=== PATIENT | male | born 1955 | race Caucasian/White ===

== ENCOUNTER 2019-05-19 15:56 | Inpatient (IN) | payer OTHER ==
[~2019-05-19] VITALS: Ht 180.3 cm; Wt 83.9 kg
--- NOTE | ~2019-05-19 | D ---
[facility] [place] [address] DISCHARGE SUMMARY Name: MARCELLA THOMPSON Room #: 214-P ADM IN M.R.#: [id number] Admission: 05/19/19 Attend Phys: Dre Infante MD, Discharge: Date of : 53 Report #: [id number] THIS REPORT FOR: cc: TAMMIE - No family physician/PCP TAMMIE - No family physician/PCP ~ THIS REPORT FOR: //name// CC: TAMMIE physician/PCP Dre DODGE DO [facility] COURSE: The patient admitted here to [facility] with what seemed to be describing accelerating anginal pattern. Dr. Dodge had called and we electively admitted him. Ruled him out for myocardial infarction, taken to the catheterization lab, which had mild 3-vessel disease. 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 There was a significant hiatal hernia, some mild gastritis. No definite ulcer, diverticulosis was found and two polyps. He has been treated with a PPI and will be discharged on a PPI. He does have hypercholesterolemia, which was not treated and he should be discharged on 20 mg of atorvastatin. He will resume his nifedipine ER 30 and his losartan 100, the PPI, Protonix 40 and the atorvastatin 20. He also sees his primary care in [place], I believe a nurse practitioner in [place]. I will obtain that name and with Dr. Dodge for Cardiology followup to repeat lipids in 6-8 weeks. DISCHARGE DIAGNOSES: 1. Chest pain with catheterization revealed mild 3-vessel coronary artery disease. 2. Chest pain as noted above, probable secondary to gastrointestinal reflux esophagitis. 3. Hypertension. 4. Hypercholesterolemia. 5. Degenerative joint disease. 6. Internal hemorrhoids and 2 small colon polyps noted. Thank you for allowing me to participate in the care of this patient. By: 0948 1020 /nt
--- NOTE | ~2019-05-19 | H ---
[facility] [place] [address] HISTORY AND PHYSICAL Name: MARCELLA THOMPSON Room #: 214-P [facility] IN M.R.#: [id number] Admission: 05/19/19 Attend Phys: Dre Infante MD, Discharge: Date of : 53 Report #: [id number] THIS REPORT FOR: cc: FAM - No family physician/PCP FAM - No family physician/PCP ~ CC: [facility] physician/PCP Dre DODGE DO DATE OF SERVICE: 05/19/2019 CARDIOLOGY ADMISSION HISTORY OF PRESENT ILLNESS: The patient is a 64-year-old male. Patient followed by Dr. Jessica marrufo in [place], [place]. He came in with recurrent and classical anginal type symptoms. Perhaps started having some chest pressure earlier in the month, but in the last few nights he has been awoken by this chest pressure, which is variable in its duration from 30 minutes to an hour or so. 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 He sees a nurse practitioner I believe in [place], [place]. His only medications are montelukast, losartan 100 and nifedipine ER 30 mg. No syncope or presyncope. No prior cardiac history, but has multiple risk factors. PAST MEDICAL HISTORY: Positive for hypertension, hypercholesterolemia, although not treated. Some asthma related issues and arthritis, intermittent joint pain. Reflux. ALLERGIES: No known drug allergies. FAMILY HISTORY: Father had stents placed in his early 70s. SOCIAL HISTORY: He is , 2 children, accompanied by his and 1 son. He is active vo, very minimal alcohol, no tobacco use. REVIEW OF SYSTEMS: Negative except for some occasional nocturia. He does live in [facility]. PHYSICAL EXAMINATION: GENERAL: Pleasant, alert. VITAL SIGNS: Blood pressure is 150/80, pulse is 70s and regular. HEENT: Eyes reveal xanthelasmas. Pharynx is clear. NECK: Shows preserved upstrokes without JVD or bruits. LUNGS: Clear, slight prolonged expiratory phase. CARDIOVASCULAR: Regular rate and rhythm, S1, S2 distant. [facility] [address] [place] [address] HISTORY AND PHYSICAL Name: MARCELLA THOMPSON Room #: 214-[facility] IN .R.#: [id number] Admission: 05/19/19 Attend Phys: Dre Infante MD, Discharge: Date of : 53 Report #: [id number] ABDOMEN: Soft. No HSM or abdominal bruit. EXTREMITIES: Reveal no edema. Distal pulses intact. NEUROLOGIC: Nonfocal. SKIN: Warm and dry without xanthoma or ulcer. MUSCULOSKELETAL: Generalized arthritic changes. He did not ambulate. ASSESSMENT: 1. Accelerating anginal pattern/coronary artery disease. 2. Hypertension. 3. Hypercholesterolemia. 4. Degenerative joint disease. RECOMMENDATIONS AND PLAN: His laboratory work is relatively unremarkable except for an LDL 150 and a total cholesterol of 222. We will initiate aspirin and Lipitor 40 in addition to his losartan and nifedipine. We will proceed to the catheterization lab in the a.m. to delineate his anatomy. Risks, benefits, alternatives were discussed with the patient and his . Thank you for asking me to assist in the care of this patient. By: 21 1938 /nt
[2019-05-19 16:00] VITALS: BP 153/88
[2019-05-19 16:52] LABS: HEMATOCRIT 45.3 % (42.0-52.0); HEMOGLOBIN 15.6 gm/dL (14.0-18.0); MCH 30.2 pg (26.0-34.0); MCHC 34.5 g/dL (28.0-37.0); MCV 87.5 fL (80.0-100.0); RBC 5.17 mil/uL (4.50-6.00); RDW 13.5 % (10.5-14.5); WBC 8.6 thou/uL (4.0-11.0)
[2019-05-19] MEDS ORDERED: NIFEDIPINE ER30 M1 PO (16:59)
[2019-05-19] MEDS ORDERED: COZAAR 25 MG TA25 M1 PO (17:00)
[2019-05-19] MEDS ORDERED: MONTELUKAST SODI4 M1 PO (17:01)
[2019-05-19 17:03] LABS: ALBUMIN 3.6 g/dL (3.4-5.0); CALCIUM 8.5 mg/dL (8.5-10.1); POTASSIUM 3.6 mmol/L (3.5-5.1); TOTAL PROTEIN 7.2 g/dL (6.4-8.2)
[2019-05-19 17:05] LABS: CHOLESTEROL 222 mg/dL (<200); HDL CHOLESTEROL 43 mg/dL (>40); LDL CHOLESTEROL 149 mg/dL (<100); TC:HDL 5.2 Ratio (Not establshd); TRIGLYCERIDE 151 mg/dL (<150); VLDL 30 mg/dL (<40)
--- NOTE | 2019-05-19 18:18 | NUR ---
PT ARRIVED TO UNIT AT APPROX 1620 DIRECT ADMIT FROM SARIKA ACCOMPANIED BY SPOUSE AND SON. PT ALERT AND ORIENTED. VSS. DENIES PAIN, CP, AND SOB. O2 SATS WNL ON ROOM AIR. PHYSICIAN NOTIFIED OF PT'S ARRIVAL, ORDERS RECEIVED/ACKNOWLEDGED/IMPLEMENTED. ADMISSION COMPLETE. TELE STRIP PRINTED/DOCUMENTED. IV STARTED. PT CURRENTLY RESTING IN BED IN NO APPARENT DISTRESS. FAMILY AT BEDSIDE. CONTINUING TO MONITOR.
[2019-05-19 20:00] VITALS: BP 128/74
[2019-05-20] VITALS (10 sets, daily range): BP systolic 118–138; BP diastolic 76–88
--- NOTE | 2019-05-20 05:09 | NUR ---
PT RESTING QUIETLY IN ROOM WITH SPOUSE AT BEDSIDE OFFERING SUPPORT, NPO AFTER MNOC, NO C/O PAIN, VSS, WILL CON'T TO MONITOR PER PPOC.
--- NOTE | 2019-05-20 08:01 | NUR ---
ASSUMED CARE OF PT AT SHIFT CHANGE; LEFT DURING REPORT FOR CARDIAC CATH PROCEDURE AT 0750. WILL INTRO SELF UPON RETURN AND ASSESS FURTHER. SEE SEPARATE INTERVENTIONS FOR ASSESSMENTS, CARDIAC MONITORED.
--- NOTE | 2019-05-20 09:26 | EKG ---
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
--- NOTE | 2019-05-20 11:09 | NUR ---
RD consult received for pt with nutrition screening risk identified for wt loss 2-13 lb, and decreased po intake. Admitted with chest pain, and off unit for cardiac cath. BMI 25 adequate. Elevated chol 222, LDL 149, and triglycerides 151. Available for nutrition education if needed, otherwise low nutrition risk.
--- NOTE | 2019-05-20 16:37 | CATHLAB ---
[facility] [place] [address] INVASIVE PROCEDURE REPORT Name: MARCELLA THOMPSON Room #: 214-P ADM IN M.R.#: [id number] Admission: 05/19/19 Attend Phys: Dre Infante MD, Discharge: Date of : 53 Report #: [id number] THIS REPORT FOR: cc: FAM - No family physician/PCP FAM - No family physician/PCP Dre Infante MD [facility] ~ APPROVED REPORT Study performed: 05/20/2019 09:01:23 Patient Details The patient is a 64 year-old male Event Personnel Dre Infante Waiter/Waitress Third Class, April Vanessa RN RN, Veronika Momin RTR, ABDIRIZAK Gallardo, Laly Herndon Monitor Procedures Performed Art Access - R femoral artery* Left Heart Cath w/or w/o Coronaries 2899790 [facility] Aortogram Abdominal Peripheral Angio 116124 Renal Bilateral Peripheral Angiography 8478549 CVRENALBIL Hemostasis w/ Mynx Indication Chest pain Procedure Narrative The Right Groin^ was infiltrated with 1% Lidocaine subcutaneous anesthesia. A PINNACLE 6FR Sheath #[id number] sheath was inserted into the RFA 6F^. Coronary angiography was performed using coronary diagnostic catheters. The right coronary system was accessed and visualized with a JR4 catheter. The left coronary system was accessed and visualized with a JL4 catheter. The left ventricle was accessed and visualized with a STR. PIG catheter. Left ventriculogram was performed in 30 degree projection. There was no hematoma. Intraoperative Conscious Sedation Sedation start time: 804 Case end Time: 829 Fentanyl 50 mcg Versed 1 mg Fluoro Time: 2.57 minutes Dose: DAP 3413.00 cGycm2 367 mGy [facility] [address] [place] [address] INVASIVE PROCEDURE REPORT Name: MARCELLA THOMPSON Room #: 214-P [facility] IN .R.#: [id number] Admission: 05/19/19 Attend Phys: Dre Infante, Discharge: Date of : 53 Report #: [id number] Contrast Type and Amount: Omnipaque 90 ml Hemodynamics The aortic pressure is 151/81 mmHg with a mean of 78 mmHg. The left ventricular pressure is 146/6 mmHg with a mean of mmHg. The left ventricular end diastolic pressure is 26 mmHg. Conclusion 1. Normal left ventricular size and systolic function EF 60% #2 abdominal aortogram intact with mild irregularities no aneurysm. #3 selective bilateral renal arteries revealed wide patency with a small amount of fibromuscular disease involving the right mid renal artery not flow-limiting #4 left main free of disease giving rise to LAD and circumflex #5 LAD extends around the apex with minimal irregularity #6 a predominantly dominant left circumflex artery revealed no occlusive disease #7 a smaller nondominant right coronary artery with a PDA filling some left ventricle minimal distal irregularity small in caliber Recommendations and plan continue aggressive risk factor modification. No indication for coronary intervention. <ELECTRONICALLY SIGNED> By: Dre Infante MD, FACC 05/20/19 163 35 35 Dre Infante MD, FACC /INF
--- NOTE | 2019-05-20 16:59 | NUR ---
PT CARE ASSUMED APPROX 0900. ASSESSMENTS CHARTED. PT DENIES PAIN AND SOA. VSS. COMPELTED 2 PROCEDURES THIS SHIFT WITHOUT ISSUES. RIGHT GROIN POST CATH SITE C/D/I. PT AND SPOUSE DENY QUESTIONS OR CONCERNS REGARDING POC. TOLERATING POC. WILL START BOWEL PREP SHORTLY FOR PROCEDURE TOMORROW. NO DISTRESS NOTED.
[2019-05-21 04:45] VITALS: BP 129/81
--- NOTE | 2019-05-21 04:48 | NUR ---
pt finished bowel prep con't to have liquid stools, vss, right groin cdi,npo since mnoc for colonoscopy, no c/o pain, vss, spouse at bedside offering support, will con't to monitor per ppoc.
[2019-05-21 08:00] VITALS: BP 144/84
[2019-05-21 08:13] VITALS: BP 144/84
[2019-05-21] MEDS ORDERED: PROTONIX40 M2 PO (09:26)
[2019-05-21] MEDS ORDERED: LIPITOR 20 MG T20 M1 PO (09:48)
--- NOTE | 2019-05-21 10:10 | NUR ---
REPORT RECEIVED FROM HOMAR SALCEDO. PT A&OX4, ASSESSED, VSS, DISCUSSED POC, REVIEWED COLONOSCOPY. PT AND BOTH VERBALIZED UNDERSTANDING, PT LEFT FOR COLONOSCOPY AT 0810 AND RETURNED AROUND 0930. DR INGRAM IN TO SEE PT AND DISCUSS DISCHARGE WITH HIM AND . BOTH VERBALIZED UNDERSTANDING AND DISCUSSED LOW CHOLESTEROL DIET.
--- NOTE | 2019-05-21 11:45 | P ---
[facility] [place] [address] PROCEDURE REPORT Name: MARCELLA THOMPSON Room #: 214-P [facility] IN M.R.#: [id number] Admission: 05/19/19 Attend Phys: Dre Infante MD, Discharge: Date of : 53 Report #: [id number] THIS REPORT FOR: cc: TAMMIE - No family physician/PCP FAM - No family physician/PCP Simon Peña MD ~ CC: [facility] physician/PCP Dre Infante DATE OF SERVICE: 05/21/2019 BRIEF HISTORY: The patient is a 64-year-old male with rectal bleeding. He has never had a colonoscopy. PREOPERATIVE DIAGNOSIS: Rectal bleeding. POSTOPERATIVE DIAGNOSES: 1. Colon polyps. 2. Diverticulosis coli, greater in left colon than right colon. 3. Internal hemorrhoids. MEDICATIONS: Deep sedation with propofol per anesthesia. SPECIMENS: 1. Splenic flexure polyp. 2. Polyp at the anal verge. ESTIMATED BLOOD LOSS: 3 mL. PROCEDURE: Colonoscopy to cecum and terminal ileum with biopsy. FINDINGS: Prior to propofol sedation, procedure of colonoscopy discussed with the patient as well as potential risks, benefits and complications. He indicates he understands and desires to proceed. DESCRIPTION OF PROCEDURE: With the patient in left lateral decubitus position, digital examination was completed, which revealed no abnormalities. Subsequently, the Olympus video colonoscope was introduced into the rectum, advanced under direct vision to the cecum. Done with minimal difficulty. The cecum was identified by the ileocecal valve and the appendiceal orifice. I was able to visualize the distal segment of terminal ileum, which was unremarkable. At that point, the scope was slowly withdrawn and careful circumferential views were obtained. Upon slow withdrawal of the scope, the prep was good. The mucosa was within normal limits, normal vascular pattern, normal light reflex. As we withdrew the scope, he was noted to have a few scattered diverticula in proximal colon including the cecum. There was no endoscopic evidence of [facility] [address] [place] [address] PROCEDURE REPORT Name: MARCELLA THOMPSON Room #: 214-P [facility] IN [facility].#: [id number] Admission: 05/19/19 Attend Phys: Dre Infante MD, Discharge: Date of : 53 Report #: [id number] diverticulitis. The mucosa was within normal limits, normal vascular pattern, normal light reflex. Other than diverticula, no other abnormalities were noted until the splenic flexure was reached, at which point a diminutive polyp was seen and removed with biopsy forceps. Scope was further withdrawn and he was noted to have moderately severe diverticular disease in the sigmoid colon without endoscopic evidence of diverticulitis. No additional neoplastic lesions or bleeding lesions were seen. Scope was withdrawn in the rectum and no abnormalities were seen. However, upon retroflexion, internal hemorrhoids were seen at the anal verge. It was felt at this is likely the site of his rectal bleeding. In addition, right at the anal verge, there was what appeared to be a diminutive polyp, which was removed with biopsy forceps. Scope was withdrawn. The patient tolerated the procedure well. CONDITION OF THE PATIENT UPON DISCHARGE: Following procedure, the patient drowsy, aroused, conversant and will be discharged home when fully ambulatory. INSTRUCTIONS TO THE PATIENT AND FAMILY AT FAMILY AT THE TIME OF DISCHARGE: Bleeding likely was from hemorrhoids. We will follow up on the pathology of the polyps. If one or both are adenomas, he should return in 5 years; if neither is adenoma, then he should follow up in 10 years. This is the patient's first colonoscopy. <ELECTRONICALLY SIGNED> By: Simon Peña MD 05/21/19 1145 0917 0938 Simon Peña MD /nt
--- NOTE | 2019-05-23 17:07 | PATH ---
[facility] [place] [address] PATHOLOGY RPT PROCEDURE Name: LESTER THOMPSON Room #: 214-P DIS IN M.R.#: [id number] Admission: 05/19/19 Date of : 53 Discharge: 05/21/19 Report #: [id number] Path Case #: [id number] [facility] Accession Number: [id number] . 01 Material submitted: . PART A: stomach - BIOPSY OF ANTRUM TO R/O H. PYLORI PART B: esophagus - BIOPSY OF DISTAL ESOPHAGUS TO R/O SCHAEFER'S. Modifiers: distal . 01 Clinical history: . Noncardiac chest pain. . 02 Diagnosis: A. Gastric mucosa, antrum to rule out H. pylori, endoscopic biopsy: - Mild reactive gastropathy. - Negative for intestinal metaplasia or atrophy. - Negative for Helicobacter pylori (properly controlled immunohistochemical stain performed). . B. Gastroesophageal mucosa, distal esophagus to rule out Schaefer's, endoscopic biopsy. - Mild chronic inflammation. - Negative for intestinal metaplasia or dysplasia. (IUV:pit 05/23/2019) QTP 05/23/2019 1253 Local . 02 Electronically signed: . Soniya Infante MD, Pathologist NPI- [id number] . 01 Gross description: . A. Received in formalin labeled "Lester [place], BX of antrum to rule out H. pylori" is a 0.5 x 0.3 x 0.1 cm fragment of stephens-brown soft tissue. The specimen is submitted entirely in A1. . B. Received in formalin labeled "Lester [place], BX of distal esophagus to rule out Schaefer's" is a 0.3 x 0.2 x 0.1 cm aggregate of stephens-brown soft tissue fragments. The specimen is submitted entirely in B1. ([facility]; 05/22/2019) [facility] 05/22/2019 1126 Local . 02 Pathologist provided ICD-10: K31.9, K20.9 . 02 CPT . 813475, 418475, R04871 Specimen Comment: A courtesy copy of this report has been sent to [phone], [place] [address] PATHOLOGY RPT PROCEDURE Name: LESTER THOMPSON Room #: 214-P DIS IN M.R.#: [id number] Admission: 05/19/19 Date of : 53 Discharge: 05/21/19 Report #: [id number] Path Case #: [id number] Specimen Comment: [id number] Specimen Comment: Report sent to / DR INGRAM Performed at: [address], [place] [id number] MD Seth Montes MD Phone: [phone] Performed at: [address] [id number] MD Soniya Infante MD Phone: [phone]
== END 2019-05-21 17:50 | disposition home or self-care (01) | DRG 287 ==
LOC: 2N 15:56
PROVIDERS: Nurse Practitioner Adult Health; ADMIT Internal Medicine Cardiovascular Disease
PROC: B2151ZZ Fluoroscopy of Left Heart using Low Osmolar Contrast (ICD-10-PCS; principal; 2019-05-20)
PROC: 4A023N7 Measurement of Cardiac Sampling and Pressure, Left Heart, Percutaneous Approach (ICD-10-PCS; principal; 2019-05-20)
PROC: B2111ZZ Fluoroscopy of Multiple Coronary Arteries using Low Osmolar Contrast (ICD-10-PCS; principal; 2019-05-20)
PROC: B4101ZZ Fluoroscopy of Abdominal Aorta using Low Osmolar Contrast (ICD-10-PCS; principal; 2019-05-20)
PROC: 0DBQ8ZZ Excision of Anus, Via Natural or Artificial Opening Endoscopic (ICD-10-PCS; 2019-05-21)
PROC: 0DBL8ZZ Excision of Transverse Colon, Via Natural or Artificial Opening Endoscopic (ICD-10-PCS; 2019-05-21)
DX: I25.119 Atherosclerotic heart disease of native coronary artery with unspecified angina pectoris (principal); K62.5 Hemorrhage of anus and rectum; K57.30 Diverticulosis of large intestine without perforation or abscess without bleeding; I10 Essential (primary) hypertension; E78.00 Pure hypercholesterolemia, unspecified; J45.909 Unspecified asthma, uncomplicated; M19.90 Unspecified osteoarthritis, unspecified site; K21.9 Gastro-esophageal reflux disease without esophagitis; K64.8 Other hemorrhoids; K63.5 Polyp of colon; Z28.21 Immunization not carried out because of patient refusal; Z79.899 Other long term (current) drug therapy
CPT/HCPCS: 10081; 62110; 62900; 70005